=== PATIENT | female | born 1940 | race Caucasian/White ===

== ENCOUNTER 2017-12-17 05:43 | Day surgery (SDC) | payer MEDICARE, OTHER ==
[~2017-12-17] VITALS: Ht 170.2 cm; Wt 90.2 kg
[~2017-12-17 05:43] MED LIST: ATAC16TA PO; COUM5TAB PO
[2017-12-17] MEDS ORDERED: PROPOFOL 200 MG/20 ML AMP OTHER ONE (05:44)
[2017-12-17] MEDS ORDERED: ASPI-183 PO (05:59)
[2017-12-17] MEDS ORDERED: CAND16TA PO (05:59)
[2017-12-17] MEDS ORDERED: SODIUM CHLORID 0.9% 500 ML IV PRN (06:15)
[2017-12-17] MEDS ORDERED: VANCOMYCIN 1000 MG/NS 250 ML IV SCH ×2 (06:15)
[2017-12-17] MEDS ORDERED: MUPIROCIN 2% OINT 1 APPLIC/GM SYR NASAL SCH (06:15)
[2017-12-17] MEDS ORDERED: POVIDONE IODINE 5% (ANTISEPSIS KIT) 4 APPLICATIONS EACH NARE SCH (06:15)
[2017-12-17] MEDS ORDERED: ceFAZolin 2 GM PREMIX 50 ML IV SCH (06:15)
[2017-12-17] MEDS ORDERED: CHLORHEXIDINE GLUCONATE 2 % 1 PACK (2 CLOTHS) TOPICAL SCH (06:15)
[2017-12-17] MEDS ORDERED: POVIDONE IODINE 5% (ANTISEPSIS KIT) 4 APPLICATIONS EACH NARE PRN (06:15)
[2017-12-17] MEDS ORDERED: METOPROLOL TARTRATE 25 MG TAB PO PRN (06:15)
[2017-12-17] MEDS ORDERED: NS 1000 ML IV SCH (06:15)
[2017-12-17] MEDS ORDERED: LACTATED RINGER'S 1000 ML IV PRN (06:15)
[2017-12-17] MEDS ORDERED: CHLORHEXIDINE GLUCONATE 2 % 1 PACK (2 CLOTHS) TOPICAL PRN (06:15)
[2017-12-17 06:21] VITALS: BP 176/91; PULSE 88; RESP 16; TEMP 98.6; O2SAT 98
[2017-12-17 06:33] LABS: AUTOMATED NEUTROPHIL # 4.3 TH/MM3 (1.8-7.7); BASOPHIL # 0.1 TH/MM3 (0-0.2); BASOPHIL % 0.6 % (0.0-2.0); EOSINOPHIL # 0.2 TH/MM3 (0-0.4); EOSINOPHIL % 2.7 % (0.0-4.0); HEMATOCRIT 46.3 % (35.0-46.0); LYMPH % 43.5 % (9.0-44.0); LYMPHOCYTE # 4.1 TH/MM3 (1.0-4.8); MEAN CELL VOLUME 86.7 FL (80.0-100.0); MEAN CORPUSCULAR HEMOGLOBIN 28.1 PG (27.0-34.0); MEAN CORPUSCULAR HGB CONC 32.5 % (32.0-36.0); MEAN PLATELET VOLUME 7.5 FL (7.0-11.0); MONO % 6.9 % (0.0-8.0); MONOCYTE # 0.6 TH/MM3 (0-0.9); NEUT % 46.3 % (16.0-70.0); PLATELET COUNT 299 TH/MM3 (150-450); RED BLOOD COUNT 5.34 MIL/MM3 (4.00-5.30); WHITE BLOOD COUNT 9.3 TH/MM3 (4.0-11.0)
[2017-12-17 06:42] LABS: PROTHROMBIN TIME - PATIENT 9.8 SEC (9.8-11.6)
[2017-12-17 07:32] LABS: CALCIUM 9.9 MG/DL (8.5-10.1); CREATININE 1.21 MG/DL (0.50-1.00)
[2017-12-17 07:33] LABS: BICARBONATE 23.4 MEQ/L (21.0-32.0)
[2017-12-17] MEDS ORDERED: LIDOCAINE HCL 2% 50 ML VIAL ONE (07:39)
[2017-12-17] MEDS ORDERED: VANCOMYCIN 500 MG VIAL ONE (07:39)
--- NOTE | 2017-12-17 08:48 | CATHPROC ---
Patient Name: MASOUD VALENZUELA Study #: [id number] Initial MD: Sony Cox Date of : 1940 Study Date: 12/17/2017 Cardiac Catheterization Report 12/17/2017 9:06:33 AM Financial #: [id number] 1 of 8 Patient Name: MASOUD VALENZUELA Study #: [id number] Initial MD: Sony Cox Date of : 1940 Study Date: 12/17/2017 Entire Case Report Patient Information Patient Name MASOUD VALENZUELA Date of 1940 Age 77 years Financial # [id number] Gender F AlternateID Lab Number 6 Room Number DC06 Height (in) 67.0 Height (cm) 170.2 BSA 2.02 Weight (lbs) 198.4 Weight (kg) 90.2 Patient Address/Phone Number Home Address [facility] Home Phone Number [phone] [facility] [id number] Study Information Study Number Admission Scheduled Start Study Start [id number] Dec 17 2017 5:43AM 12/17/2017 Dec 17 2017 6:48AM [place] Service Cardiac Pacer/ICD Admit Source Facility Department Other [facility] - S[facility] Programmer Analyst Physician and Clinical Staff Initial Sony Quinn Particleboard Factory Worker Virgen Lopez,RN Particleboard Factory Worker Angy Will,THREAD ROLLER TECH2 Other Anesthesia, OUTSIDE EVENT SALES SPECIALIST Recorder Dorcas Stanley,ANS[place] Scrub Cesilia Rosario,RT(R) 12/17/2017 9:06:33 AM Financial #: [id number] 2 of 8 Patient Name: MASOUD VALENZUELA Study #: [id number] Initial MD: Sony Cox Date of : 1940 Study Date: 12/17/2017 Equipment Time Reeling Machine Operator Description Size Mf Part Number Used/Scraped [id number] 06:51 MEDLINE INDUSTRIES SUTURE, STRIP PLUS 1/2" * Used *[id number] 06:51 MEDLINE PACER ADHESIVE, MASTISOL 2/3CC 2/3CC 0523-48 Used 06:51 MEDLINE PACER WALLS, LIMB * 2530 *[id number] Used [id number] 06:51 MEDLINE PACER PACK, PACER CUSTOM * Used *[id number] 06:51 MEDLINE PACER PEN, SKIN DUAL W/ RULER * Used *[id number] 07:59 Needle Sponge Count 2 22 Used 07:59 Needle Sponge Count 3 33 Used 07:58 Needle Sponge Count 3 3 Used 07:59 Needle Sponge Count 30 1 Used [id number] *[id number] SUTURE, 2-0 VICRYL [SH] ([id number]) SUTURE, 3-0 VICRYL [SH] ([id number]) SUTURE, 4-0 MONOCRYL [PS2] (Y496G) [id number] 06:51 [employer],WARM AIR CCL * Used *[id number] 08:13 [facility] PACEMAKER, ASSURITY DR MALIK DDDR [id number] Used [facility] PAD, ELECTROSURGICAL 06:51 * [id number] *[id number] Used SURGICAL GROUNDING ORANGE 0965-1446 06:51 [employer]. / * Used *43455 Equipment Model, Serial, Lot Number and Expiration Data Description Model Number Serial Number Lot Number Expiration Date PACEMAKER, ASSURITY DR MALIK [id number] 04-25-2019 Insurance Information Insurance Payor Medicare Third Democrat Third Democrat Number MEDICARE A B MCRAB History: Allergies Allergy Reaction diazepam ALOE 12/17/2017 9:06:33 AM Financial #: [id number] 3 of 8 Patient Name: MASOUD VALENZUELA Study #: [id number] Initial MD: Sony Cox Date of : 1940 Study Date: 8 Labs Hgb (g/dl) Hct (%) RBC (MIL/MM3) WBC (l/cumm) Platelets (thousands) 11.60-17.00 35.00-51.00 4.00-5.90 4.00-11.00 150.00-450.00 15.0 46.3 5.3 9.3 299 Na (meq/l) K (meq/l) 136.00-145.00 3.50-5.10 140 4.1 INR (PTT:PT) 0.90-1.10 1 Medication Medication Total Dose (Bolus/Oral) Medication Total Dosage/Unit 2% XYLOCAINE 50 mL Medications (Bolus/Oral) Medication Time Given Dosage/Unit Administered By Reason 2% XYLOCAINE 12/17/2017 8:07:12 AM 50 mL Sony Cox 50 mL 2% XYLOCAINE given in lab by Sony Cox in Left shoulder via Subcutaneous. Ordered by Sony Cox. Medication (Drip) Medication Time Given Dosage/Unit Concentration/Unit Diluent (ml) Solution ANCEF 12/17/2017 7:40:11 AM 2 g 2 g ANCEF given in lab by Anesthesia, OUTSIDE EVENT SALES SPECIALIST via Peripheral IV. Ordered by Sony Cox. Reason: As pe r physicians verbal order. VANCOMYCIN DRIP 12/17/2017 7:40:46 AM 1 g 1 g VANCOMYCIN DRIP given in lab by Anesthesia, OUTSIDE EVENT SALES SPECIALIST via Peripheral IV. Ordered by Sony Cox. [place] son: As per physicians verbal order. 12/17/2017 9:06:33 AM Financial #: [id number] 4 of 8 Patient Name: MASOUD VALENZUELA Study #: [id number] Initial MD: Sony Cox Date of : 1940 Study Date: 12/17/2017 Initial Case Assessment Cardiovascular HR NIBP Chest Pain 82 175/70 0 Edema Present Skin color Skin None Normal Warm Dry Circulatory - Right Pulses Dorsalis Pedis 1 Scale (0,1,2,3,4,d) Circulatory - Left Pulses Dorsalis Pedis 1 Scale (0,1,2,3,4,d) Circulatory - Lower Extremities Color Lower Right Color Lower Left Normal Normal Neurological State Oriented to time-place- Alert Moves all extremities person Respiration - General Respiration Rate SpO2 (%) (B/min) 18 100 12/17/2017 9:06:33 AM Financial #: [id number] 5 of 8 Patient Name: MASOUD VALENZUELA Study #: [id number] Initial MD: Sony Cox Date of : 1940 Study Date: 12/17/2017 Final Case Assessment Cardiovascular HR NIBP 72 100/50 Edema Present Skin color Skin None Normal Warm Dry Circulatory - Right Pulses Dorsalis Pedis 1 Scale (0,1,2,3,4,d) Circulatory - Left Pulses Dorsalis Pedis 1 Scale (0,1,2,3,4,d) Circulatory - Lower Extremities Color Lower Right Color Lower Left Normal Normal Neurological State Oriented to time-place- Drowsy Moves all extremities person Respiration - General Respiration Rate SpO2 (%) (B/min) 16 99 Chronological Log Time Study Chronological Log 7:28:59 Patient arrived via Bed. 7:29:00 Patient Name, D.O.B, / Armband Verified By R.N. 7:29:01 Consent signed by the physician and the patient and verified by the S[facility] Programmer Analyst staff. 7:29:02 Pre-op and post- op instructions given; patient acknowledges understanding of instructions. 7:29:03 Verbal Stimulation=2 Physical Stimulation=2 Airway=2 Respiration=2 TOTAL=8. (0=absent, 1=li mited, 2=present) 7:29:05 Anesthesia at bedside. Assumes care of patient. 7:29:07 Patient has been NPO for More than 6Hrs. 7:29:08 Skin Breakdown- bruise rt elbow. no open areas per pt. 7:29:36 Patient Warmer Placed on the Table. 12/17/2017 9:06:33 AM Financial #: [id number] 6 of 8 Patient Name: MASOUD VALENZUELA Study #: [id number] Initial MD: Sony Cox Date of : 1940 Study Date: 12/17/2017 7:29:39 Disposable Defibrillator Pads Placed On Patient. 7:29:40 Gabriel Prominences Protected 7:29:43 A # 20 IV was noted in the Hand (left). Grade = 0 0.9%NaCl @ KVO 7:29:45 A # 22 IV was noted in the Forearm (right). Grade = 0 0.9% NaCl @ KVO 7:29:47 History and physical on the chart. 7:30:39 [facility] rep in room for case. Denis 7:33:53 2% CHLORHEXIDINE GLUCONATE WASH AND NASAL SWIPE DONE PRIOR TO PROCEDURE. 7:34:00 Bovie ground pad applied to: right thigh 7:34:07 Table restraints applied according to hospital policy 2 g ANCEF given in lab by Anesthesia, OUTSIDE EVENT SALES SPECIALIST via Peripheral IV. Ordered by Sony Cox. Reason: As per physicians 7:40:11 verbal order. Assessment: Initial Case, HR=82 BPM, JCMF=675/70 mmhg, Chest Pain=0, Edema=None, Color=Normal, Skin = Warm, Dry Right Pulses: Trey Ped=1 Left Pulses: Trey Ped=1 7:40:26 Lower Right Extremities: Color=Normal Lower Left Extremities: Color=Normal Neurological: State=Alert, Ox3, PARHAM Respiration: Resp=18 B/min, XoV6=919 % 1 g VANCOMYCIN DRIP given in lab by Anesthesia, OUTSIDE EVENT SALES SPECIALIST via Peripheral IV. Ordered by Kay Cox Reason: As per 7:40:46 physicians verbal order. 7:43:49 Left Upper Chest Prepped Times Two. 7:47:32 A sterile drape was applied after a 3 min waiting period. 7:48:20 Anesthesiologist in to review pt's assessment and care then left. 7:53:25 Reference ECG taken 8:00:11 MD arrived. Time Out. Correct patient, procedure, procedure equipment, site and side verified with physicia n present. Time 8:06:31 concurred by MD, individual staff and OUTSIDE EVENT SALES SPECIALIST. Time Out #2 - Consents verified, patient in correct position, all results are labled and displa yed, safety precautions 8:06:53 taken, antibiotics administered. Time out concurred by MD, individual staff and OUTSIDE EVENT SALES SPECIALIST in procedu re 8:06:53 Case Start 8:07:12 50 mL 2% XYLOCAINE given in lab by Sony Cox in Left shoulder via Subcutaneous. Ordered by Sony Cox. 8:08:35 Surgical Incision Made. 8:11:40 A pocket was created at the Lt. upper chest. 8:12:45 A device was explanted. 8:13:55 A PACEMAKER, ASSURITY DR RF DDDR was connected and placed in the pocket. 8:16:38 Pocket flushed with antibiotic solution 8:19:21 Testing the device. 8:19:39 The pocket is being closed. Second Sponge And Instrument Count Done by Cesilia Rosario RT(R). 8:20:09 Hypo's: 3, Sponges: 30, Bovie/scratch: 3 Sutures: 5, Blades: 2, Instruments: 26, Syveck Patches: ~SYVECK PATCH~ verified by RW 12/17/2017 9:06:33 AM Financial #: [id number] Patient Name: MASOUD VALENZUELA Study #: [id number] Initial MD: Sony Cox Date of : 1940 Study Date: 12/17/2017 8:21:03 Implant Procedure was performed. 8:21:10 A PPM Implant . (Dual) 8:21:51 DOCU called. Spoke to Wong. 8:22:04 Bedside Report will be given. 8:32:31 Implantable Device card placed in patient's chart. Final Sponge And Instrument Count Done by Cesilia Rosario RT(R). 8:34:04 Hypo's: 3, Sponges: 30, Bovie/scratch: 3 Sutures: 5, Blades: 2, Instruments: 26, Syveck Patches: ~SYVECK PATCH~ verified by RW 8:44:07 The pocket was closed. 8:44:29 Sterile dressing applied to site Assessment: Final Case, HR=72 BPM, BZWC=520/50 mmhg, Edema=None, Color=Normal, Skin = Warm, Dr y Right Pulses: Trey Ped=1 Left Pulses: Trey Ped=1 8:45:00 Lower Right Extremities: Color=Normal Lower Left Extremities: Color=Normal Neurological: State=Drowsy, Ox3, PARHAM Respiration: Resp=16 B/min, SpO2=99 % 8:48:50 Case End 8:51:30 No case complications noted. 8:51:50 Cine recording checked. 8:52:33 Patient moved to stretcher 8:53:11 Defibrillator and ground pads removed. Skin intact. 8:55:29 Pt transported to DOCU via bed on R/A with RN and tech accompanying her in stable conditio n. End Study - Contrast Media Used In Study Contrast Total Opened (mL) Total Used (mL) Total Wasted (mL) Unspecified 0 0 0 End Study - Radiation Exposure Fluoro Time (minutes) 0.1 End Study - Patient Disposition Complications Transferred To Interventional Outcome No Telemetry Bed successful 12/17/2017 9:06:33 AM Financial #: [id number]
--- NOTE | 2017-12-17 19:46 | EKG ---
Date Performed: 12/17/2017 Time Performed: 06:31:28 PTAGE: 77 years EKG: Sinus rhythm with PAC(s). Rightward axis Poor R wave progression - probable normal variant Low QRS voltages in pr ecordial leads Borderline ECG PREVIOUS TRACING : 06/05/2012 06.14 Since previous tracing, no significant change noted DOCTOR: Sarahi Reeves Interpretating Date/Time 12/17/2017 19:44:17
--- NOTE | 2017-12-18 09:31 | MA ---
cc: JUSTINA MONTAGUE M.D. DATE: 12/17/2017 PREOPERATIVE DIAGNOSIS Pacemaker generator elective replacement index. POSTOPERATIVE DIAGNOSIS Pacemaker generator elective replacement index. PROCEDURE Removal and replacement of dual-chamber pacemaker with lead testing. DESCRIPTION OF PROCEDURE The patient was brought to the cardiac packing house laborer in a fasting state. She received preoperative antibiotics with Ancef and vancomycin. Sedation was provided by Anesthesia using 1% lidocaine for local anesthesia. An incision was made directly over the previous scar using blunt and sharp dissection, the generator was freed from the pocket. The leads were disconnected and then connected to the new pacemaker generator. Pacemaker generator was positioned in the floor of the pocket with the leads behind it. The wound was irrigated with antibiotic solution and then carefully closed in layers using interrupted 2-0 Vicryl sutures to the deep fascial layers, interrupted 3-0 Vicryl sutures for the subcutaneous layers followed by running 4-0 Monocryl stitch and then Steri-Strips and 4x4 dressing. There were no complications. The atrial lead has a P-wave of 2.8 mV, impedance of 530 ohms and a capture of 0.5 volts. The right ventricular lead has R wave of 8.7 mV, impedance of 530 ohms and capture 1.25 volts. The right atrial lead is chronic, it is a model [id number], serial number [id number]. Date of implant April 24, 2002. The RV lead is a chronic lead, model number [id number], implanted April 24, 2002. There is an old abandonment lead as well. The pacemaker is a [employer] model [id number], serial number [id number]. Pacemaker is programmed DDD at a rate of 60-120. There were no complications. The patient will be discharged home later today. Justina Montague MD VEMerle/AKI /8:48 AM /9:01 AM
== END 2017-12-17 11:55 | disposition home or self-care (01) ==
LOC: HDIC 05:43 → HCAT 05:43
PROVIDERS: ATTEND Internal Medicine Cardiovascular Disease
DX: Z45.010 Encounter for checking and testing of cardiac pacemaker pulse generator [battery] (principal); I49.5 Sick sinus syndrome; I47.2 Ventricular tachycardia; I48.0 Paroxysmal atrial fibrillation; I10 Essential (primary) hypertension; G47.30 Sleep apnea, unspecified; G25.0 Essential tremor; E05.90 Thyrotoxicosis, unspecified without thyrotoxic crisis or storm; M19.90 Unspecified osteoarthritis, unspecified site; Z01.818 Encounter for other preprocedural examination; Z01.810 Encounter for preprocedural cardiovascular examination
CPT/HCPCS: 00400; 33228; 80048; 85025; 85610; 85730; 93005; C1785; J3010; J3370